=== PATIENT | male | born 1945 | race Caucasian/White ===

== ENCOUNTER 2022-12-01 10:37 | Day surgery (SDC) | payer MEDICARE, OTHER ==
[2022-11-24 15:38] LABS: BASOPHILS # (AUTO) 0.1 X10'3 (0-0.2); EOSINOPHILS # (AUTO) 0.3 X10'3 (0-0.9); EOSINOPHILS % (AUTO) 5.7 % (0-6); LYMPHOCYTES # (AUTO) 1.4 X10'3 (1.1-4.8); LYMPHOCYTES % (AUTO) 24.4 % (21-51); MEAN CORPUSCULAR HEMOGLOBIN 32.7 PG (27.0-31.0); MEAN CORPUSCULAR HGB CONC 34.5 g/dL (33.0-36.5); MEAN CORPUSCULAR VOLUME 94.6 FL (78-98); MEAN PLATELET VOLUME 8.2 FL (7.4-10.4); MONOCYTES # (AUTO) 0.5 X10'3 (0-0.9); NEUTROPHILS # (AUTO) 3.5 X10'3 (1.8-7.7); NEUTROPHILS % (AUTO) 60.9 % (42-75); PRE OP HEMATOCRIT 41.8 % (42.0-52.0); PRE OP HEMOGLOBIN 14.4 g/dL (14.0-17.9); PRE OP PLATELET COUNT 273 X10'3 (140-440); RED BLOOD COUNT 4.41 X10'6 (4.70-6.10); RED CELL DISTRIBUTION WIDTH 13.4 % (11.5-14.5)
[2022-11-24 15:54] LABS: ALBUMIN 3.4 G/DL (3.4-5.0); ALBUMIN/GLOBULIN RATIO 1.1 (1.1-1.5); ALKALINE PHOSPHATASE 75 IU/L (46-116); BLOOD UREA NITROGEN 15 MG/DL (7-18); BUN/CREATININE RATIO 14.9 (10.0-20.0); CALCIUM 9.4 MG/DL (8.5-10.1); CHLORIDE 103 MMOL/L (99-107); CREATININE 1.01 MG/DL (0.60-1.10); PRE OP ALT 23 U/L (30-65); PRE OP ANION GAP 8 (8-16); PRE OP AST 16 U/L (10-37); PRE OP BILIRUB, TOTAL 0.5 MG/DL (0.0-1.0); PRE OP GLUCOSE 134 MG/DL (70-104); PRE OP POTASSIUM 3.8 MMOL/L (3.4-5.1); PRE OP SODIUM 140 MMOL/L (135-145); TOTAL CARBON DIOXIDE 29.5 MMOL/L (24-32); TOTAL PROTEIN 6.6 G/DL (6.4-8.2); eGFR 71 ML/MIN
[~2022-12-01] VITALS: Ht 185.4 cm; Wt 105.5 kg
[~2022-12-01 10:37] MED LIST: ASPI81TA52 PO; ENAL-79 PO; HYDR25TA4 PO; MONT-40 PO; VITAMIN D3; cefazolin 2gm/D5W 100mL 100 ML IV ONE; famotidine 20mg tablet PO ONE; ringers solution, lacted 1,000 ML IV SCH
[2022-12-01 10:45] VITALS: BP 118/86
[2022-12-01] MEDS ORDERED: morphine 4 MG/ML inj SYRINge IV PRN (11:20)
[2022-12-01] MEDS ORDERED: labetalol 20mg/4ml (5mg/ml) syringe IV PRN (11:20)
[2022-12-01] MEDS ORDERED: ondansetron/PF 4mg/2ml inj IV PRN (11:20)
[2022-12-01] MEDS ORDERED: morphine 2 MG/ML inj. syringe IV PRN (11:20)
[2022-12-01] MEDS ORDERED: proCHLORperazine 10 MG/2 ml inj IV PRN (11:20)
[2022-12-01] MEDS ORDERED: ringers solution, lacted 1,000 ML IV SCH (11:20)
[2022-12-01] MEDS ORDERED: meperidine/PF 25mg/ml syringe IV PRN ×3 (11:20)
[2022-12-01] MEDS ORDERED: acetaminophen 1,000mg/100ml IV 100 ML IV PRN (11:20)
[2022-12-01] MEDS ORDERED: hydrALAZINE 20mg/ml inj. IV PRN (11:20)
[2022-12-01] MEDS ORDERED: BUPIVAcaine/PF 2.5mg/ml (0.25%) 10ml vial ONE (12:55)
[2022-12-01] MEDS ORDERED: fentaNYL/PF 50MCG/1 ML 2ML syringe ONE (13:21)
[2022-12-01] MEDS ORDERED: midazolam 1 mg/ML 2ml injection ONE (13:22)
[2022-12-01] MEDS ORDERED: LIDOcaine 0.5% (5mg/ml) 50ml vial ONE (13:42)
[2022-12-01] MEDS ORDERED: propofol inj 20 ML IV ONE (13:42)
[2022-12-01] MEDS ORDERED: ROPIVAcaine 0.5% (5mg/ml) 30ml vial ONE (13:42)
[2022-12-01 13:51] VITALS: BP 126/77
[2022-12-01 14:00] VITALS: BP 126/77
--- NOTE | 2022-12-01 14:04 | NUR ---
Received from OR via SUHAIL TO RR 8, accompanied by Anesthesiologist DR DAVILA and report given by Anesthesiolgist. PT PRESENTS WITH PIV 20G LEFT WRIST, DRESSINGON RIGHT WRIST CDI, VSS. Addendum: 12/01/22 at 1427 by Radha Roe RN Amended: Links added.
[2022-12-01 14:10] VITALS: BP 128/79
[2022-12-01 14:20] VITALS: BP 118/70
[2022-12-01 14:31] VITALS: BP 118/70
--- NOTE | 2022-12-01 14:31 | NUR ---
DC HOME: ALL DISCHARGE CRITERIA HAS BEEN MET. VSS, PAIN AT A TOLERABLE LEVEL, VOIDING AND ABLE TO SAFELY AMBULATE AND TRANSFER SELF. IV TAKEN OUT WITHOUT ANY COMPLICATIONS. ALL DISCHARGE INSTRUCTIONS COVERED WITH PATIENT AND ALL QUESTIONS ANSWERED. PATIENT TAKEN OUT VIA WHEELCHAIR TO PERSONAL VEHICLE WHERE FAMILY/FRIEND DROVE PATIENT HOME. Addendum: 12/01/22 at 1434 by Radha Roe RN Amended: Links added.
== END 2022-12-01 14:31 | disposition home or self-care (01) ==
LOC: PAS 10:37
PROVIDERS: ATTEND Orthopaedic Surgery Hand Surgery
DX: G56.01 Carpal tunnel syndrome, right upper limb (principal); E11.9 Type 2 diabetes mellitus without complications; I10 Essential (primary) hypertension; Z98.890 Other specified postprocedural states; Z87.891 Personal history of nicotine dependence; Z85.51 Personal history of malignant neoplasm of bladder; Z88.8 Allergy status to other drugs, medicaments and biological substances; Z79.899 Other long term (current) drug therapy; Z79.82 Long term (current) use of aspirin
CPT/HCPCS: 36415; 64721; 80053; 82948; 85025; J0690; J2250; J2704; J3010; J3490; J7030; J7120; Z7506; Z7512; A4215; A6449; J2795

== ENCOUNTER 2024-10-21 09:48 | Day surgery (SDC) | payer MEDICARE, OTHER ==
[~2024-10-21] VITALS: Ht 182.9 cm; Wt 109.4 kg
[2024-10-21] VITALS (13 sets, daily range): BP systolic 95–137; BP diastolic 46–103; PULSE 54–105; RESP 10–17; TEMP 98.4; O2SAT 96–100
[~2024-10-21 09:48] MED LIST changes: -cefazolin 2gm/D5W 100mL 100 ML IV ONE; -famotidine 20mg tablet PO ONE; -ringers solution, lacted 1,000 ML IV SCH
[2024-10-21] MEDS ORDERED: ATOR20TA66 PO (10:38)
[2024-10-21] MEDS ORDERED: APIX5TAB3 PO (10:38)
[2024-10-21] MEDS ORDERED: SOTA80TA73 PO (10:38)
[2024-10-21] MEDS: normal saline 1000ml 1,000 ML IV SCH (12:34)
[2024-10-21] MEDS: fentaNYL/PF 50MCG/1 ML 2ML syringe IV ONE (12:35)
[2024-10-21] MEDS: MIDAZolam 1mg/ml 10ml vial IV ONE (12:35)
== END 2024-10-21 13:30 | disposition home or self-care (01) ==
LOC: SSTAY O 09:48
PROVIDERS: ATTEND Student in an Organized Health Care Education/Training Program
DX: I48.91 Unspecified atrial fibrillation (principal); I10 Essential (primary) hypertension; E11.9 Type 2 diabetes mellitus without complications; I45.10 Unspecified right bundle-branch block; I49.3 Ventricular premature depolarization; Z88.8 Allergy status to other drugs, medicaments and biological substances; Z79.899 Other long term (current) drug therapy; G47.30 Sleep apnea, unspecified; Z98.890 Other specified postprocedural states
CPT/HCPCS: 92960; 93005; J2250; J3010; J7030